=== PATIENT | female | born 1980 | race Caucasian/White ===

== ENCOUNTER 2016-08-08 21:31 | Observation (INO) | payer OTHER ==
[~2016-08-08] VITALS: Ht 157.5 cm; Wt 65.8 kg
[2016-08-08] MEDS ORDERED: PARACETAMOL PO (22:52)
[2016-08-08] MEDS ORDERED: PREN1TAB26 PO (22:52)
[2016-08-09 00:10] VITALS: BP 123/73
[2016-08-10] MEDS ORDERED: AMOX875T2 PO (20:42)
[2016-08-10] MEDS ORDERED: AMOX1TAB16 PO (22:22)
[2016-08-15] MEDS ORDERED: FERR-89 PO (12:57)
== END 2016-08-09 | disposition home or self-care (01) ==
LOC: 4S 21:31
PROVIDERS: ADMIT Obstetrics & Gynecology; ATTEND Obstetrics & Gynecology
DX: O62.9 Abnormality of forces of labor, unspecified (principal); O48.0 Post-term pregnancy; Z3A.40 40 weeks gestation of pregnancy; O09.523 Supervision of elderly multigravida, third trimester
CPT/HCPCS: 59025; G0378

== ENCOUNTER 2016-08-10 20:19 | Inpatient (IN) | payer OTHER ==
[~2016-08-10] VITALS: Ht 157.5 cm; Wt 65.7 kg
[~2016-08-10 20:19] MED LIST: PARACETAMOL PO; PREN1TAB26 PO
[2016-08-10] MEDS ORDERED: TERBUTALINE SULFATE 1 MG/ML VIAL SQ PRN (20:30)
[2016-08-10] MEDS ORDERED: FentaNYL CITRATE-PF 100 MCG/2 ML VIAL IVP PRN (20:30)
[2016-08-10] MEDS ORDERED: CITRIC ACID/SODIUM CITRATE 30 ML SOLUTION UDCUP PO PRN (20:30)
[2016-08-10] MEDS ORDERED: METOCLOPRAMIDE HCL 5 MG/ML 2 ML VIAL IVP PRN (20:30)
[2016-08-10] MEDS ORDERED: AMOX875T2 PO (20:42)
[2016-08-10 20:44] VITALS: BP 119/75
[2016-08-10] MEDS: RINGERS SOLUTION,LACTATED 1,000 ML IV SCH (21:35)
[2016-08-10 21:36] LABS: BASOPHILS # (AUTO) 0.02 K/uL (0.00-0.20); BASOPHILS % (AUTO) 0.4 % (0.0-2.0); EOSINOPHILS # (AUTO) 0.03 K/uL (0.00-0.70); EOSINOPHILS % (AUTO) 0.56 % (1.0-6.0); HEMATOCRIT 36.7 % (36-46); HEMOGLOBIN 12.6 g/dL (12.0-16.0); LYMPHOCYTES # (AUTO) 1.3 K/uL (1.0-4.8); LYMPHOCYTES % (AUTO) 21.8 % (22.0-44.0); MEAN CORPUSCULAR HEMOGLOBIN 31.2 pg (26.0-34.0); MEAN CORPUSCULAR HGB CONC 34.2 G/dL (31.0-37.0); MEAN CORPUSCULAR VOLUME 91 fL (80-100); MONOCYTES # (AUTO) 0.4 K/uL (0.1-1.0); MONOCYTES % (AUTO) 6.3 % (2.0-9.0); NEUTROPHILS # (AUTO) 4.1 K/uL (1.8-7.7); RED BLOOD CELL COUNT(AUTO) 4.03 MIL/uL (4.00-5.20); RED CELL DISTRIBUTION WIDTH 14.4 % (11.5-14.5); WHITE BLOOD COUNT (AUTO) 5.8 K/uL (4.5-11.0)
[2016-08-10 21:53] LABS: PLATELET COUNT (AUTO) 234 K/uL (150-450)
[2016-08-10] MEDS ORDERED: DINOPROSTONE 10 MG VAGINAL SUPPOSITORY VG ONE (22:00)
[2016-08-10] MEDS ORDERED: AMOX1TAB16 PO (22:22)
[2016-08-10] MEDS ORDERED: AMOX TR/POT CLAV 875 MG/125 MG TABLET PO SCH (23:00)
[2016-08-11] MEDS: RINGERS SOLUTION,LACTATED 1,000 ML IV SCH ×3 (04:28→19:20)
[2016-08-11] MEDS ORDERED: -PHARMACY NOTE- MISC ONE ×2 (10:00)
[2016-08-11] MEDS ORDERED: DINOPROSTONE 10 MG VAGINAL SUPPOSITORY EC ONE (10:45)
[2016-08-11] MEDS: GuaiFENesin/D-METHORPHAN [SUGAR-FREE] 200-20MG/10 ML SYRUP UDCUP PO SCH (17:52)
[2016-08-11] MEDS ORDERED: OXYTOCIN 30 UNITS/LACT RINGERS 500 ML IV PRN (23:57)
[2016-08-11] MEDS ORDERED: OXYTOCIN 30 UNITS/LACT RINGERS 500 ML IV ONE (23:57)
[2016-08-11] MEDS ORDERED: RINGERS SOLUTION,LACTATED 1,000 ML IV PRN (23:57)
[2016-08-12] MEDS ORDERED: OXYTOCIN 10 UNITS/ML VIAL IM ONE
[2016-08-12] MEDS ORDERED: ONDANSETRON HCL 4 MG/2 ML VIAL IVP ONE
[2016-08-12] MEDS ORDERED: EPHEDrine SULFATE 50 MG/ML VIAL IM ONE
[2016-08-12] MEDS ORDERED: DEXAMETHASONE SOD PHOS 4 MG/ML VIAL IVP ONE
[2016-08-12] MEDS ORDERED: KETOROLAC TROMETHAMINE 60 MG/2 ML VIAL IM ONE
[2016-08-12] MEDS: GuaiFENesin/D-METHORPHAN [SUGAR-FREE] 200-20MG/10 ML SYRUP UDCUP PO SCH ×2 (00:08→08:27)
[2016-08-12] MEDS: RINGERS SOLUTION,LACTATED 1,000 ML IV SCH ×5 (00:08→23:06)
[2016-08-12] MEDS ORDERED: BUPIVACAINE HCL/PF 0.25% 30 ML VIAL ONE (07:33)
[2016-08-12] MEDS ORDERED: FentaNYL/BUPIV 0.125%/NS/PF 200 ML ED ONE ×2 (07:35→20:50)
[2016-08-12] MEDS ORDERED: FentaNYL/BUPIV 0.125%/NS/PF 200 ML ED PRN (08:09)
[2016-08-12] MEDS ORDERED: DiphenhydrAMINE HCL 50 MG/ML VIAL IVP PRN (08:15)
[2016-08-12] MEDS: ONDANSETRON HCL 4 MG/2 ML VIAL IVP PRN ×2 (12:09→18:41)
[2016-08-12] MEDS ORDERED: GuaiFENesin/D-METHORPHAN [SUGAR-FREE] 200-20MG/10 ML SYRUP UDCUP PO SCH (14:00)
[2016-08-12] MEDS ORDERED: AMPICILLIN SODIUM 2 GM/NS 100 ML IV SCH (20:00)
[2016-08-12] MEDS ORDERED: GENTAMICIN 120 MG/NACL ISO-OSM 100 ML IV SCH (21:00)
[2016-08-12] MEDS ORDERED: MORPHINE SULFATE/PF 0.5 MG/ML 10 ML AMP ONE (22:59)
[2016-08-12] MEDS ORDERED: MIDAZOLAM HCL 2 MG/2 ML VIAL ONE (23:00)
[2016-08-12] MEDS ORDERED: FentaNYL CITRATE-PF 100 MCG/2 ML VIAL ONE (23:00)
[2016-08-12] MEDS ORDERED: LIDOCAINE HCL 2%/EPI 1:200,000/PF 10 ML VIAL ONE (23:01)
[2016-08-13] MEDS ORDERED: OxyCODONE HCL/ACETAMINOPHEN 5-325 MG TABLET PO PRN ×2 (00:30)
[2016-08-13] MEDS ORDERED: MORPHINE SULFATE 2 MG/ML SYRINGE IVP PRN (00:30)
[2016-08-13] MEDS ORDERED: IBUPROFEN 600 MG TABLET PO PRN (00:30)
[2016-08-13] MEDS ORDERED: FentaNYL CITRATE-PF 100 MCG/2 ML VIAL IVP PRN ×2 (00:30→00:45)
[2016-08-13] MEDS ORDERED: DiphenhydrAMINE HCL 50 MG/ML VIAL IVP PRN ×2 (00:30→00:45)
[2016-08-13] MEDS ORDERED: ONDANSETRON HCL 4 MG/2 ML VIAL IVP PRN ×2 (00:30→00:45)
[2016-08-13] MEDS ORDERED: GLYCERIN/WITCH HAZEL LEAF 40 PADS JAR TP PRN (00:30)
[2016-08-13] MEDS ORDERED: OXYTOCIN 20 UNITS in RINGERS SOLUTION,LACTATED 1,000 ML IV SCH (00:30)
[2016-08-13] MEDS ORDERED: MORPHINE SULFATE 4 MG/ML SYRINGE IVP PRN (00:45)
[2016-08-13] MEDS ORDERED: OXYGEN THERAPY IH SCH (00:45)
[2016-08-13] MEDS ORDERED: LIDOCAINE HCL 2%/EPI 1:200,000/PF 10 ML VIAL ONE (01:11)
[2016-08-13] MEDS: NALBUPHINE HCL 10 MG/ML VIAL IVP SCH ×3 (04:30→16:18)
[2016-08-13] MEDS: KETOROLAC TROMETHAMINE 30 MG/ML VIAL IVP SCH ×2 (06:12→13:43)
[2016-08-13] MEDS: DEXTROSE 5%-0.45% SODIUM CHL 1,000 ML IV SCH ×2 (13:01→21:05)
[2016-08-14] MEDS: IBUPROFEN 800 MG TABLET PO SCH ×4 (00:31→18:42)
[2016-08-14 05:45] LABS: BASOPHILS % (AUTO) 0.2 % (0.0-2.0); EOSINOPHILS % (AUTO) 0.4 % (1.0-6.0); HEMATOCRIT 30.9 % (36-46); LYMPHOCYTES # (AUTO) 1.5 K/uL (1.0-4.8); LYMPHOCYTES % (AUTO) 10.5 % (22.0-44.0); MEAN CORPUSCULAR HEMOGLOBIN 30.2 pg (26.0-34.0); MEAN CORPUSCULAR HGB CONC 32.3 G/dL (31.0-37.0); MEAN CORPUSCULAR VOLUME 94 fL (80-100); MONOCYTES # (AUTO) 0.7 K/uL (0.1-1.0); MONOCYTES % (AUTO) 4.9 % (2.0-9.0); NEUTROPHILS # (AUTO) 11.8 K/uL (1.8-7.7)
[2016-08-14] MEDS ORDERED: MAGNESIUM HYDROXIDE SUSPENSION 30 ML UDCUP PO SCH (09:00)
[2016-08-14] MEDS: MAGNESIUM HYDROXIDE SUSPENSION 30 ML UDCUP PO SCH ×2 (10:04→20:33)
[2016-08-14] MEDS: GuaiFENesin/D-METHORPHAN [SUGAR-FREE] 200-20MG/10 ML SYRUP UDCUP PO SCH ×2 (12:45→21:55)
[2016-08-14] MEDS: OXYGEN THERAPY IH SCH (20:00)
[2016-08-15] MEDS: IBUPROFEN 800 MG TABLET PO SCH ×4 (00:43→18:33)
[2016-08-15] MEDS: GuaiFENesin/D-METHORPHAN [SUGAR-FREE] 200-20MG/10 ML SYRUP UDCUP PO SCH ×2 (04:05→14:23)
[2016-08-15] MEDS ORDERED: MO8B PO (12:22)
[2016-08-15] MEDS ORDERED: IBUP-1547 PO (12:55)
[2016-08-15] MEDS ORDERED: DSS100 PO (12:56)
[2016-08-15] MEDS ORDERED: FERS325 PO (12:57)
[2016-08-15] MEDS ORDERED: PERCT PO (12:59)
[2016-08-15] MEDS: MAGNESIUM HYDROXIDE SUSPENSION 30 ML UDCUP PO SCH (13:51)
[2016-08-15] MEDS: OXYGEN THERAPY IH SCH (13:51)
== END 2016-08-15 21:35 | disposition home or self-care (01) | DRG 765 ==
LOC: 4S 20:19 → OBSVTOIN 20:19 → 4S 08-13 01:30
PROVIDERS: ADMIT Obstetrics & Gynecology; ATTEND Obstetrics & Gynecology
PROC: 3E0P7GC Introduction of Other Therapeutic Substance into Female Reproductive, Via Natural or Artificial Opening (ICD-10-PCS; principal; 2016-08-13)
PROC: 10D00Z1 Extraction of Products of Conception, Low, Open Approach (ICD-10-PCS; 2016-08-13)
DX: O41.03X0 Oligohydramnios, third trimester, not applicable or unspecified (principal); O75.2 Pyrexia during labor, not elsewhere classified; O62.0 Primary inadequate contractions; O61.0 Failed medical induction of labor; O62.1 Secondary uterine inertia; Z37.0 Single live birth; Z3A.40 40 weeks gestation of pregnancy; O09.513 Supervision of elderly primigravida, third trimester
CPT/HCPCS: 86850; 86900; 86901; 89060; J0290; J0690; J1100; J1580; J1885; J2250; J2274; J2300; J2405; J2590; J2765; J3010; J3490; J7120